=== PATIENT | female | born 1980 | race American Indian/Alaskan Native ===

== ENCOUNTER 2017-08-15 13:20 | Emergency (ER) | payer MEDICAID ==
[2017-08-15 13:42] VITALS: BMI 49.7
[2017-08-15 13:46] VITALS: O2SAT 99
[2017-08-15] MEDS ORDERED: Albuterol-Ipratrop 3 mg / 0.5 (3 ml) UD INH STA (14:37)
--- NOTE | 2017-08-15 15:01 | RAD ---
HISTORY: cp COMPARISON: No prior. TECHNIQUE: Chest PA and lateral FINDINGS: LUNGS: No active pulmonary disease. PLEURA: No significant pleural effusion identified. No pneumothorax apparent. CARDIOVASCULAR: Normal. OSSEOUS STRUCTURES: No significant abnormalities. VISUALIZED UPPER ABDOMEN: Normal. OTHER FINDINGS: None. IMPRESSION: No active disease.
--- NOTE | 2017-08-15 15:10 | C.PDOC ---
History Of Present Illness 37-year-old female, PMHx includes Asthma, presents to the emergency department with complaints of cough, chest pain and wheezing ongoing for the past few days. Patient denies any fever. States she "lost" her nebulizer. Time Seen by Provider: 08/15/17 14:29 Chief Complaint (Nursing): Cough, Cold, Congestion History Per: Patient History/Exam Limitations: no limitations Past Medical History Reviewed: Historical Data, Nursing Documentation, Vital Signs Vital Signs: Last Vital Signs Temp 97.8 F 08/15/17 16:07 Pulse 60 08/15/17 16:07 Resp 20 08/15/17 16:07 BP 141/94 H 08/15/17 16:07 Pulse Ox 99 08/15/17 16:07 - Medical History PMH: Asthma Family History: States: No Known Family Hx - Social History Hx Alcohol Use: No Hx Substance Use: No - Immunization History Hx Tetanus Toxoid Vaccination: No Hx Influenza Vaccination: No Hx Pneumococcal Vaccination: No Review Of Systems Constitutional: Negative for: Fever Cardiovascular: Positive for: Chest Pain. Negative for: Edema Respiratory: Positive for: Cough, Wheezing Gastrointestinal: Negative for: Vomiting Musculoskeletal: Negative for: Back Pain Physical Exam - Physical Exam Appears: Non-toxic, No Acute Distress Skin: Normal Color, Warm, Dry, No Rash Head: Normacephalic Eye(s): bilateral: PERRL Nose: Normal Oral Mucosa: Moist Lips: Normal Appearing Neck: Normal ROM Cardiovascular: Rhythm Regular, No Murmur Respiratory: No Accessory Muscle Use, Other (diminished breath sounds, to B/L bases with scattered wheeze) Gastrointestinal/Abdominal: Soft, No Tenderness Extremity: Normal ROM, No Deformity, No Swelling Neurological/Psych: Oriented x3, Normal Speech ED Course And Treatment ECG: Interpreted By Me, Viewed By Me ECG Rhythm: Sinus Bradycardia ECG Interpretation: No Acute Changes Rate From EC O2 Sat by Pulse Oximetry: 99 (RA) Pulse Ox Interpretation: Normal Medical Decision Making Medical Decision Making: Pt is PERC negative.refuses lab eval. request xr and then dc home. cxr neg. sympoms improved speakinf ull sentences in nad Disposition - Disposition Referrals: [facility] [Outside] [facility] [Outside] Disposition: HOME/ ROUTINE Disposition Time: 04:00 Condition: STABLE Additional Instructions: follow up in clinic/your doctor/return to er with worsening symptoms or concerns. Prescriptions: Albuterol 0.083% [Albuterol 0.083% Inhal Rola (2.5 mg/3 ml) UD] 2.5 mg IH Q4 #20 neb Nebulizer [Aeroeclipse II] 1 each MC Q4 PRN #1 each PRN Reason: Wheezing Prednisone 50 mg PO DAILY #5 tablet Instructions: Asthma in Adults, Chest Pain Forms: [employer] (Uzbek) - Clinical Impression Clinical Impression: Asthma, Chest pain - Scribe Statement The provider has reviewed the documentation as recorded by the Scribe (Bernard Louise) All medical record entries made by the Scribe were at my direction and personally dictated by me. I have reviewed the chart and agree that the record accurately reflects my personal performance of the history, physical exam, medical decision making, and the department course for this patient. I have also personally directed, reviewed, and agree with the discharge instructions and disposition.
[2017-08-15 16:08] VITALS: BP 141/94; PULSE 60; RESP 20; TEMP 97.8
--- NOTE | 2017-08-16 15:11 | CARD ---
APPROVED REPORT EKG Measurement Heart [id number] <Conclusion> Sinus bradycardia Otherwise normal ECG
== END 2017-08-15 16:21 | disposition home or self-care (01) ==
LOC: C.ER 13:20
DX: J45.909 Unspecified asthma, uncomplicated (principal); R07.9 Chest pain, unspecified; F17.210 Nicotine dependence, cigarettes, uncomplicated

== ENCOUNTER 2017-09-13 11:28 | Emergency (ER) | payer MEDICAID ==
[2017-09-13 11:28] VITALS: BMI 49.7
[2017-09-13 11:46] VITALS: BP 120/84; PULSE 80; RESP 20; TEMP 99.2; O2SAT 98
[2017-09-13] MEDS ORDERED: Albuterol 0.083% Inhal Sol (2.5 mg/3 mL) UD IH STA (12:14)
[2017-09-13] MEDS ORDERED: Promethazine/Cod 6.25mg-10mg/5ml Syr UD PO STA (12:15)
--- NOTE | 2017-09-13 12:18 | C.PDOC ---
History Of Present Illness 37 yo female w/PMhx of asthma come in for evaluation of cold sx for past 3-4 days associated with malaise, nasal congestion, runny nose and worse of dry cough. Pt sts, " ran out of medication for asthma", developed chest tightness with cough since yesterday. Otherwise, pt denies high fever, chills, severe headache, dizziness, drooling, dyspnea, SOB, abd. pain, V/D, back pain, UTI sx. Ambulate to Ed for evaluation, not in resp. distress. Time Seen by Provider: 09/13/17 11:51 Chief Complaint (Nursing): Flu-like Symptoms History Per: Patient Onset/Duration Of Symptoms: Gradual Past Medical History Reviewed: Historical Data, Nursing Documentation, Vital Signs Vital Signs: Last Vital Signs Temp 99.2 F 09/13/17 11:42 Pulse 80 09/13/17 11:42 Resp 20 09/13/17 11:42 BP 120/84 09/13/17 11:42 Pulse Ox 98 09/13/17 12:22 - Medical History PMH: Asthma Family History: States: No Known Family Hx - Social History Hx Tobacco Use: Yes Hx Alcohol Use: No Hx Substance Use: No - Immunization History Hx Tetanus Toxoid Vaccination: No Hx Influenza Vaccination: No Hx Pneumococcal Vaccination: No Review Of Systems Except As Marked, All Systems Reviewed And Found Negative. Constitutional: Positive for: Malaise. Negative for: Fever, Chills ENT: Positive for: Nose Discharge, Nose Congestion. Negative for: Ear Discharge , Throat Pain, Throat Swelling Cardiovascular: Negative for: Chest Pain, Palpitations Respiratory: Positive for: Cough, Wheezing. Negative for: Shortness of Breath, Pleuritic Pain, Sputum Gastrointestinal: Negative for: Nausea, Vomiting, Abdominal Pain, Diarrhea Genitourinary: Negative for: Dysuria Musculoskeletal: Negative for: Neck Pain Skin: Negative for: Rash Neurological: Negative for: Weakness, Numbness, Altered Mental Status, Headache Physical Exam - Physical Exam Appears: Well, Non-toxic, No Acute Distress Skin: Normal Color, Warm, Dry, No Rash Head: Normacephalic Eye(s): bilateral: PERRL Ear(s): Bilateral: Normal Nose: No Flaring, Discharge (scant clear rinorrhea B/L), No Deformity, No Tenderness Oral Mucosa: Moist, No Drooling Tongue: Normal Appearing Lips: Normal Appearing Throat: No Erythema, No Drooling Neck: Trachea Midline, Supple Cardiovascular: Rhythm Regular Respiratory: No Decreased Breath Sounds, No Accessory Muscle Use, No Rales, No Rhonchi, No Stridor, Wheezing (scant Right basilar expiratory wheezing) Gastrointestinal/Abdominal: Soft, No Tenderness, No Distention, No Guarding Back: No CVA Tenderness Extremity: Normal ROM, No Deformity, No Swelling Neurological/Psych: Oriented x3, Normal Speech ED Course And Treatment O2 Sat by Pulse Oximetry: 98 Pulse Ox Interpretation: Normal - Radiology CXR: Interpreted by Me, Viewed By Me CXR Interpretation: Yes: No Acute Disease Progress Note: On re-evaluation, pt is afebrile, hemodynamicaly stable. Non- toxic. Not in resp. distress. PulsEOx 98% RA. ENT: no acute findings. uvula midline, no edema. neck: Supple, (-) meningeal sign. Lungs: CTA B/L, BS equal B/L. Abd: benign. neurologicaly intact. Pt has clinical findings c/w acute bronchitis, asthma exacerbation. ref. to f/u with ped in 2-3 days for re-eval. return to ED if any worsening or new changes. Disposition Counseled Patient/Family Regarding: Diagnosis, Need For Followup, Rx Given - Disposition Referrals: Joellen Natarajan MD [Medical Doctor] - Disposition: HOME/ ROUTINE Disposition Time: 12:22 Condition: STABLE Additional Instructions: Encourage fluids take medication as prescribed Follow up with PMD in 2-3 days for re-evaluation. return to ED if any worsening or new changes. Prescriptions: Albuterol HFA [Ventolin HFA 90 mcg/actuation (8 g)] 1 puff IH Q6 #1 inhaler Azithromycin [Zithromax] 250 mg PO DAILY #4 tab Prednisone [Deltasone] 40 mg PO DAILY #6 tablet Promethazine/Codeine [Phenergan/Codeine Oral Syrup] 10 ml PO BID #100 ml Instructions: Acute Bronchitis, Asthma, Adult (DC) Forms: [employer] (Cymro) - Clinical Impression Clinical Impression: Asthma, Bronchitis
[2017-09-13] MEDS ORDERED: Albuterol 0.083% Inhal Sol (2.5 mg/3 mL) UD ONE (12:23)
--- NOTE | 2017-09-13 12:37 | RAD ---
HISTORY: Cough COMPARISON: Chest radiographs 08/15/2017. TECHNIQUE: Chest PA and lateral FINDINGS: LUNGS: No active pulmonary disease. PLEURA: No significant pleural effusion identified. No pneumothorax apparent. CARDIOVASCULAR: Upper limits normal cardiac silhouette. No pulmonary vascular congestion evident. OSSEOUS STRUCTURES: No significant abnormalities. VISUALIZED UPPER ABDOMEN: Normal. OTHER FINDINGS: None. IMPRESSION: Upper limits normal cardiac size. No pulmonary vascular derangement, infiltrate or pleural effusion appreciable this time.
[2017-09-13] MEDS ORDERED: Promethazine/Cod 6.25mg-10mg/5ml Syr UD ONE (12:39)
== END 2017-09-13 13:05 | disposition home or self-care (01) ==
LOC: C.ER 11:28
DX: J45.901 Unspecified asthma with (acute) exacerbation (principal)

== ENCOUNTER 2018-01-06 23:37 | Emergency (ER) | payer MEDICAID, OTHER ==
[2018-01-06 23:52] VITALS: BMI 48.3
[2018-01-07] VITALS: TEMP 98.1
--- NOTE | 2018-01-07 00:07 | C.PDOC ---
History Of Present Illness 37 year old female with PMHx of asthma presents to the ED c/o asthma exacerbation, productive cough and subjective fever for the past several days. Patient reports increased albuterol use at home with limited improvement. Patient denies fever, chills, nausea, vomit, rash, recent travel, sick contacts. Time Seen by Provider: 01/06/18 23:53 Chief Complaint (Nursing): Respiratory Distress History Per: Patient History/Exam Limitations: no limitations Onset/Duration Of Symptoms: Days Current Symptoms Are (Timing): Still Present Associated Symptoms: Cough, Fever Severity: None Recent travel outside of the [place]: No Additional History Per: Patient - Asthma History Rescue Medications: See Home Medication List Control Medications: See Home Medication List Past Medical History Reviewed: Historical Data, Nursing Documentation, Vital Signs Vital Signs: Last Vital Signs Temp 98.1 F 01/06/18 23:52 Pulse 80 01/06/18 23:52 Resp 25 H 01/06/18 23:54 BP 155/87 H 01/06/18 23:52 Pulse Ox 100 01/06/18 23:52 - Medical History PMH: Asthma, HTN Surgical History: No Surg Hx Family History: States: Unknown Family Hx - Social History Hx Tobacco Use: Yes Hx Alcohol Use: No Hx Substance Use: No - Immunization History Hx Tetanus Toxoid Vaccination: No Hx Influenza Vaccination: No Hx Pneumococcal Vaccination: No Review Of Systems Constitutional: Positive for: Fever. Negative for: Chills ENT: Negative for: Throat Pain, Throat Swelling Respiratory: Positive for: Cough, Shortness of Breath, Sputum Gastrointestinal: Negative for: Nausea, Vomiting Skin: Negative for: Rash Neurological: Negative for: Weakness, Numbness Physical Exam - Physical Exam Appears: Non-toxic, No Acute Distress Skin: Normal Color, Warm, Dry Head: Atraumatic, Normacephalic Eye(s): bilateral: Normal Inspection Ear(s): Bilateral: Normal Oral Mucosa: Moist Throat: Normal, No Erythema, No Exudate Neck: Normal ROM, Supple Chest: Symmetrical Cardiovascular: Rhythm Regular Respiratory: No Rales, No Rhonchi, Wheezing (diffuse expiratory), Other (neb in progress, bronchial sounds, speaking in full sentences) Gastrointestinal/Abdominal: Soft, No Tenderness, No Guarding, No Rebound Extremity: Normal ROM, No Tenderness, No Swelling Neurological/Psych: Oriented x3, Normal Speech, Normal Cognition Gait: Steady ED Course And Treatment O2 Sat by Pulse Oximetry: 100 (ON RA) Pulse Ox Interpretation: Normal Medical Decision Making Medical Decision Making: Plan: * Zithromax 500 mg PO * Duoneb * Prednisone 60 mg PO Disposition Counseled Patient/Family Regarding: Diagnosis, Need For Followup, Rx Given - Disposition Referrals: YOUR,PMD [Other] Disposition: HOME/ ROUTINE Disposition Time: 00:06 Condition: IMPROVED Prescriptions: Albuterol HFA [Ventolin HFA 90 mcg/actuation (8 g)] 1 puff IH Q4 #1 inhaler Azithromycin 1 tab PO DAILY #4 tab predniSONE [Prednisone] 60 mg PO DAILY #12 tab Instructions: Asthma, Adult (DC) Forms: Dr. Scribbles (Mongolian) - Clinical Impression Clinical Impression: Exacerbation of asthma, Bronchitis - Scribe Statement The provider has reviewed the documentation as recorded by the Scribe Khanh Crabtree All medical record entries made by the Scribe were at my direction and personally dictated by me. I have reviewed the chart and agree that the record accurately reflects my personal performance of the history, physical exam, medical decision making, and the department course for this patient. I have also personally directed, reviewed, and agree with the discharge instructions and disposition.
[2018-01-07] MEDS: Albuterol-Ipratrop 3 mg / 0.5 (3 ml) UD IH SCH (00:21)
[2018-01-07] MEDS ORDERED: Albuterol-Ipratrop 3 mg / 0.5 (3 ml) UD ONE (00:23)
[2018-01-07 01:06] VITALS: BP 124/78; PULSE 95; RESP 18; O2SAT 98
== END 2018-01-07 01:06 | disposition home or self-care (01) ==
LOC: C.ER 23:37
DX: J45.901 Unspecified asthma with (acute) exacerbation (principal); F17.210 Nicotine dependence, cigarettes, uncomplicated